=== PATIENT | female | born 1990 | race Caucasian/White ===

== ENCOUNTER → 2017-10-12 | Outpatient (CLI) | payer BC ==
[~2017-10-12] MED LIST: ATARAX,VISTARIL50 MG PO; BACTRIM DS PO; BACTRIM,SEPT1 TABLET; BENADRYL25 MG PO; BRINTELLIX20 MG PO; CLEOCIN300 MG PO; CYMBALTA20 MG PO; GABAPENTIN300 MG PO; KEFLEX250 MG; LO LOESTRIN FE1 EACH PO; LOESTRIN1 EACH PO; LORTAB 5-325 M1 EACH PO; MACROBID100 MG PO; NEXIUM40 MG PO; NORCO 7.5/321 TABLET PO; NORTRIPTYLINE H25 MG PO; NORTRIPTYLINE H50 MG PO; NORTRIPTYLINE HCL; PREDNISONE20 MG PO; PRILOSEC OTC20 MG PO; SERTRALINE HCL100 MG PO; SIMVASTATIN10 MG PO; TRILEPTAL150 MG PO; ULTRAM50 MG PO; VERAPAMIL HCL120 MG PO; VERAPAMIL HCL360 MG PO; Vicodin,Norco 5/325 PO; Viibryd PO; ZANTAC150 MG PO; ZOFRAN ODT4 MG PO; ZOFRAN ODT8 MG PO; ZOLOFT100 MG PO
== END | disposition home or self-care (01) ==
LOC: CDC 13:30
DX: Z01.818 Encounter for other preprocedural examination (principal); E66.01 Morbid (severe) obesity due to excess calories
CPT/HCPCS: 93000

== ENCOUNTER 2017-11-22 22:29 | Emergency (ER) | payer BC ==
[~2017-11-22] VITALS: Ht 160 cm; Wt 122.6 kg
[2017-11-22 23:13] LABS: HEMATOCRIT 40.4 % (36.0-46.0); HEMOGLOBIN 14.3 G/DL (11.9-15.5); MCH 29.1 PG (29.0-34.0); MCHC 35.4 G/DL (30.0-36.0); MCV 82.1 FL (83-99); RBC DIS.WIDTH-CV 12.6 % (11.8-14.6); RBC DIS.WIDTH-SD 37.3 % (39-53); RED BLOOD COUNT 4.92 M/uL (3.80-5.20); WHITE BLOOD COUNT 8.7 K/uL (4.1-10.2)
[2017-11-22 23:30] LABS: ALBUMIN 4.4 g/dL (3.2-4.8); CHLORIDE 102 mEq/L (99-109); POTASSIUM 3.7 mEq/L (3.7-5.4); SODIUM 137 mEq/L (136-147)
[2017-11-22 23:32] LABS: GLUCOSE 86 mg/dL (70-99)
[2017-11-22 23:33] LABS: TOTAL PROTEIN 7.7 g/dL (6.4-8.3)
[2017-11-22 23:34] LABS: TOTAL BILIRUBIN 0.4 mg/dL (0.0-1.0)
[2017-11-22 23:36] LABS: ALKALINE PHOSPHATASE 82 IU/L (3-129); CREATININE 0.8 mg/dL (0.6-1.3); GFR ESTIMATE (CALCULATED) > 59 mL/min/
[2017-11-22 23:37] LABS: UREA NITROGEN (BUN) 12 mg/dL (9-23)
[2017-11-22 23:38] LABS: AST (GOT) 36 IU/L (2-34)
[2017-11-22 23:39] LABS: ALT (GPT) 33 IU/L (3-49); LIPASE 129 U/L (1.0-51.0)
[2017-11-22 23:45] LABS: QUANTITATIVE HCG < 4.0 MIU/ML
[2017-11-23 00:19] LABS: APPEARANCE SL.HAZY ((CLEAR)); BILIRUBIN NEGATIVE; BLOOD NEGATIVE; COLOR AMBER ((YELLOW)); GLUCOSE (STRIP) NEGATIVE; KETONES 80; LEUKOCYTES MODERATE; NITRITE POSITIVE; PROTEIN (STRIP) 100; SPECIFIC GRAVITY 1.038 (1.000-1.030)
[2017-11-23 00:21] LABS: BACTERIA RARE /HPF; EPITHELIAL CELLS 1+ /HPF; MUCUS 3+ /LPF; RED BLOOD CELLS 0-5 /HPF (0-5); UCUL ADDED? YES
[2017-11-23 01:03] LABS: PLAT.SUFFICIENCY ADEQUATE; PLATELET COUNT 266 K/uL (156-360)
[2017-11-23] MEDS ORDERED: CEFPODOXIME PR100 MG PO (01:32)
[2017-11-23] MEDS ORDERED: PYRIDIUM100 MG PO (01:32)
[2017-11-23 02:04] VITALS: BP 136/78
== END 2017-11-23 02:08 | disposition home or self-care (01) ==
LOC: EME 22:29
PROVIDERS: Emergency Medicine
DX: N30.00 Acute cystitis without hematuria (principal); E86.0 Dehydration; Z98.84 Bariatric surgery status; Z90.49 Acquired absence of other specified parts of digestive tract; I10 Essential (primary) hypertension
CPT/HCPCS: 74177; 80053; 81003; 83605; 83690; 84702; 85027; 87040; 87086; 99281; 99284; J0692; J7030